=== PATIENT | female | born 1995 | race Caucasian/White ===

== ENCOUNTER 2023-05-02 14:16 | Emergency (ER) | payer MEDICAID, SELFPAY ==
[2023-05-02 14:48] VITALS: BP 119/81; PULSE 76; RESP 17; TEMP 36.6; O2SAT 98; BMI 20.4
--- NOTE | 2023-05-02 14:48 | ED.GENADULT ---
HPI - General Adult General Chief complaint: General Medical Stated complaint: methodone Time Seen by Provider: 05/02/23 15:53 Source: patient Mode of arrival: ambulatory Limitations: no limitations History of Present Illness HPI narrative: 28 yo female with history of opioid use disorder on methadone 88 mg day presents to the ER for methadone dosing. She got out of 60 day inpatient [facility] 35 at [facility]. Does not have last dose letter. Was not dosed today before going to court. She states she starting to feel restless but denies overt opiate withdrawal symptoms. complaint: methadone dosing. Onset (ago): hour(s) Relieving factors: none Exacerbating factors: none Associated symptoms: denies other symptoms Treatments prior to arrival: none Related Data Home Medications Medication Instructions Recorded Confirmed methadone 10 mg/5 mL oral solution 88 mg PO DAILY 05/02/23 05/02/23 Allergies Allergy/AdvReac Type Severity Reaction Status Date / Time amoxicillin Allergy Anaphylaxis Verified 05/02/23 14:46 Review of Systems Review of Systems: Yes all other systems are reviewed and are negative Physical Exam ED Vital Signs: Vital Signs - 24 hr 05/02/23 14:48 Temperature 98 F Pulse Rate 76 Respiratory Rate 17 Blood Pressure 119/81 Pulse Oximetry 98 Oxygen Delivery Method Room Air BMI result Body Mass Index 20.4 Appearance: Alert. Oriented X3. No acute distress. Head: normocephalic, atraumatic. Eyes: Pupils equal, round and reactive to light. ENT: Pharynx normal. No tonsillar swelling or exudate. Neck: Normal inspection. Neck supple. CVS: Normal heart rate and rhythm. Pulses normal. Respiratory: No respiratory distress. Skin: Skin warm and dry. Normal skin color. Normal skin turgor. No rashes. Extremities: No lower extremity edema. No joint swelling. Neuro/psych: Oriented X 3. grossly normal, nonfocal Course Course Course Narrative: RME - 28 yo female with history of opioid use disorder on methadone 88 mg day presents to the ER for methadone dosing. She got out of 60 day inpatient section 35 at [facility]. Does not have last dose letter. Was not dosed today before going to court. Plan: confirm last dose by calling [facility] Medical Decision Making Medical Decision Making MDM Narrative: 28 yo female presents to the ER for methadone dosing. She just got out of section 35 in [place] with no outpatient clinic arranged. Addiction team consulted and Era DAVIDSON confirmed dose of 88 mg last given 05/01. Patient given 88 mg today. Addiction team to help arrange further outpatient plan for future doses. Differential Diagnosis Differential Diagnoses: The differential diagnosis associated with the presentation includes opiate withdrawal, opiate use disorder, polysubstance abuse, opiate intoxication Tests considered The following testing was considered but not selected: considered utox Prescription Management I considered prescription management with: Other (methadone) Chronic Conditions Patient?s care impacted by: Other (opiate use disorder) Social Determinants Patient?s care significantly limited by Social Determinants of Health including: Alcoholism and drug addiction in family, Problems related to primary support group and Other Social Determinant of Health Critical Care Time Critical Care Time Critical Care Time: No Discharge Plan Discharge Clinical Impression: Opioid use disorder Patient Disposition: Home, Self-Care Instructions: Opioid Use Disorder (ED) Additional Instructions: You were given methadone 88 mg today 05/02/23. Prescriptions: No Action methadone 10 mg/5 mL Solution 88 mg PO DAILY
--- NOTE | 2023-05-02 15:57 | HE.PHANOTE ---
METHADONE CONFIRMATION FORM RECEIVED FROM [facility]. PATIENT TAKES 88 MG DAILY LAST DOSE 05/01
--- NOTE | 2023-05-02 16:04 | MHC.RECOVRN ---
Met with pt in [place] after pt presented to [facility] ED for methadone dose. Pt released from [facility] 35 in [place] today, was supposed to be there 2 more days however a bed opened at [facility] in [place] so pt was released early. Entering the section pt was taking 40 mg methadone daily and using 5 bundles heroin daily. While there, pt has been increased. Most recent increase yesterday, 05/01/23 to 88 mg (from 80 mg). Pt was receiving methadone through [facility] while sectioned. Guest dosing paperwork had not been set up for pt due to abrupt release. T/w has sent pts referral to [facility]. Pt provided with t/w contact information if needed.
[2023-05-02] MEDS: methADONE HCl 20 MG/2 ML ORAL.CONC 88 MG PO (16:18)
--- NOTE | 2023-05-03 09:13 | MHC.RECOVRN ---
Spoke with pt on the phone. Per pt, no longer at [facility] in [place]. Would like information sent to [facility] in [place]. Spoke with Maximiliano at [facility], pt able to present today to complete intake and receive methadone. Last dose information faxed to [phone].
== END 2023-05-02 16:37 | disposition home or self-care (01) ==
PROVIDERS: Emergency Provider Internal Medicine
DX: F11.20 Opioid dependence, uncomplicated (principal)
CPT/HCPCS: 99283